=== PATIENT | female | born 1935 | race Caucasian/White ===

== ENCOUNTER 2021-10-08 08:23 | Emergency (ER) | payer OTHER ==
[~2021-10-08] VITALS: Ht 165.1 cm; Wt 68.0 kg
[2021-10-08] MEDS ORDERED: HYDROcodone-ACET 5/325MG TAB PO ONE (14:00)
[2021-10-08] MEDS ORDERED: HYDR-4902 PO (14:22)
[2021-10-08 15:00] VITALS: BP 149/61
== END 2021-10-08 16:50 | disposition home or self-care (01) ==
LOC: EDBD 08:23 → ER 08:23
DX: S02.2XXA Fracture of nasal bones, initial encounter for closed fracture (principal); S80.01XA Contusion of right knee, initial encounter; S60.211A Contusion of right wrist, initial encounter; S60.222A Contusion of left hand, initial encounter; I10 Essential (primary) hypertension; E03.9 Hypothyroidism, unspecified; Z88.1 Allergy status to other antibiotic agents; W10.9XXA Fall (on) (from) unspecified stairs and steps, initial encounter; Y93.89 Activity, other specified; Y92.89 Other specified places as the place of occurrence of the external cause; Y99.8 Other external cause status
CPT/HCPCS: 70450; 70486; 72125; 73562; 73610